=== PATIENT | female | born 1970 | race Caucasian/White ===

== ENCOUNTER 2023-06-06 14:23 | Observation (INO) ==
--- OUTSIDE RECORDS SUMMARY | 2023-06-06 14:29 | External Medical Summary | Summary of Care ---
Author Name Unknown Organization [facility] Address [address] [place] [address] Phone [phone] Care Team Providers Care Showplace Manager Name Role Phone Bear Conroy MD Primary Care Provider +1- [phone] Reason for Referral * Precert (Within 10 days (routine)) - Pending Review Specialty Diagnoses / Procedures Referred By Contac t Referred To Contact Cardiac Studies Diagnoses Elevated glucose Uncontrolled hypertension Hypokalemia Encounter for screening mammogram for breast cancer Heart palpitations Essential hypertension with goal blood pressure less than 140/90 Procedures ECHO, STRESS (EXERCISE) W/ PHYSICIAN Edie Segovia PA-C [address] [place] [address] Referral ID Status Reason Start Date Expiration Date Visits Requested Visits Authorized [id number] Pending Review Precert 06/04/2023 999 [id number] Reason for Visit * Reason Comments Emergency Department Follow-Up Encounter Details Date Type Department Care Team (Late st Contact Info) Description 06/04/2023 11:00 AM EST Office Visit [facility] [address] [place] [phone] Edie Segovia PA-C [address] [place] [address] Elevated glucose*; Uncontrolled hypertension; Hypokalemia; Encounter for screening mammogram for breast cancer; Heart palpitations; Essential hypertension with goal blood pressure less than 140/90; Edema of left upper arm Allergies No known active allergiesdocumented as of this encounter (statuses as of 06/04/2023) Medications Medication Sig Dispensed Refills Start Date End Date Status Triamcinolone Acetonide 0.1 % External Cream (Aristocort)Indicat ions:Lichen Apply topically to affected area 2 times a day . To affected area. 80 g 5 08/27/2021 Active Albuterol Sulfate HFA 108 (90 Base) MCG/ACT Inhalation Aerosol SolutionIndications :Bronchitis, complicated Inhale by mouth 2 Puffs every 6 hours as needed for Wheezing. 18 g 1 03/18/2022 Active Lisinopril-hydroCHL OROthiazide 20-25 MG Oral TabletIndications:E ssential hypertension with goal blood pressure less than 140/90 Take 1 Tablet by mouth in the morning. 90 Tablet 1 05/28/2023 Active hydrOXYzine Pamoate 25 MG Oral Capsule (Vistaril) Take 1 Capsule by mouth 3 times a day as needed for Anxiety. 60 Capsule 0 05/28/2023 06/27/2023 Active Omeprazole Magnesium 20 MG Oral Tablet Delayed Release (PriLOSEC OTC) Take 1 Tablet by mouth in the morning. 0 Active Atenolol 25 MG Oral Tablet (Tenormin)Indicatio ns:Uncontrolled hypertension,Heart palpitations,Essent ial hypertension with goal blood pressure less than 140/90 Take 1 Tablet by mouth at bedtime. 30 Tablet 11 06/04/2023 Active documented as of this encounter (statuses as of 06/04/2023) Active Problems Problem Noted Date Diagnosed Date Perimenopause 05/28/2023 Heart palpitations 05/28/2023 Essential hypertension with goal blood pressure less than 140/90 03/17/2023 Polyneuropathy in other diseases classified else where 02/11/2022 Family history of diabetes mellitus 11/09/2008 Chronic rhinitis 08/17/2006 VARIANTS OF MIGRAINE WITH INTRACTABLE MIGRAINE, SO STATED 08/03/2005 Heartburn documented as of this encounter (statuses as of 06/04/2023) Resolved Problems Problem Noted Date Diagnosed Date Resolved Date AC MAXILLARY SINUSITIS, LEFT 08/17/2006 11/23/2017 Acute URI 08/17/2006 07/05/2008 Overview: Resolved per Benign Acute Dxs Protocol #3 Dysfunction of eustachian tube 08/17/2006 11/23/2017 ADVANCE DIRECTIVE INFORMATION 11/13/2004 03/17/2023 Overview: refused CONTRACEPTIVE MANGMT NEC 02/2018 documented as of this encounter (statuses as of 06/04/2023) Immunizations Name Administration Dates Next Due COVID-19 mRNA, LNP-s, No Pre serve, 2-Dose Series (Moderna) 07/03/2020,06/05/2020 DTWP - Dipth/Tet/Whole Cell Pertussis 02/19/1973 ,01/27/1973,1972 Diptheria/Tetanus (Adult) 09/26/1996 Measles Vaccine 1972 OPV - Polio Virus Vaccine (Oral) 08/25/1973,06/17,04/27/1973 Rubella Vaccine 1972 TB Cindy Test 05/25/1974 TDAP (age 11 and older)(Adacel) 11/21/2008 documented as of this encounter Social History Tobacco Use Types Packs/Day Years Used Date Smoking Tobacco: Never Smokeless Tobacco: Never Alcohol Use Standard Drinks/Week Comments Yes 0 (1 standard drink = 0.6 oz pur e alcohol) OCCASSIONALLY PHQ-2 Answer Date Recorded PHQ Adult Total Score 0 07/22/2020 Hunger Vital Sign Answer Date Recorded Within the past 12 months, y ou worried that your food would run out before you got the money to buy more. Never true 03/17/20 23 Within the past 12 months, t he food you bought just didn't last and you didn't have money to get more. Never true 03/17/2023 Sex and Gender Information Value Date Recorded Sex Assigned at Female 03/17/2023 9:34 AM EDT Gender Identity Female 03/17/2023 9:34 AM EDT Sexual Orientation Straight 12/02/2018 8: 04 AM EDT Job Start Date Occupation Industry Not on file Not on file Not on file documented as of this encounter Last Filed Vital Signs Vital Sign Reading Time Taken Comments Blood Pressure 142/98 06/04/2023 10:52 AM EST Pulse 92 06/04/2023 10:52 AM EST Temperature 36.4 C (97.5 F) 06/04/2023 1 0:52 AM EST Respiratory Rate 16 06/04/2023 10:5 2 AM EST Oxygen Saturation - - Inhaled Oxygen Concentration - - Weight 116.2 kg (256 lb 3.2 oz) 024 10:52 AM EST Height - - Body Mass Index 38.96 02/11/2022 1:57 PM EDT documented in this encounter Progress Notes * Edie Segovia PA-C - 06/04/2023 10:56 AM EST Images from the original note were not included. History of Present Illness Yaritza Kaur is a 53 year old female that presents for Emergency Department Follow-Up Here for er f/u Had telemed on 05/28/2023 for her bp Then was to the er on 05/31/2023 for htn / chest heaviness No pain - really heaviness [place] numb all over Had been taking her medication so never ran out of meds. bp there was 184/125, 194/113, 186/99 and 154/113 EKG and scans normal Mild hypokalemia noted - potassium was 3.3 Of note, bg was also elevated at 101 Feeling somewhat better than when she went to the er L arm is swollen again and she has a omid on her skin, similar to when she had a clot in the past. Ct was clear but the last clot was at the fold of her arm. Physical Exam Vitals: 06/04/23 1052 Temp: 36.4 C (97.5 F) Pulse: 92 Resp: 16 BP: 142/98 BP Readings from Last 3 Encounters: 06/04/23 142/98 06/19/22 144/80 02/11/22 112/80 Wt Readings from Last 3 Encounters: 06/04/23 116.2 kg (256 lb 3.2 oz) 02/11/22 115.7 kg (255 lb) 08/27/21 109.5 kg (241 lb 6.4 oz) BMI Readings from Last 3 Encounters: 06/04/23 38.96 kg/m 02/11/22 38.77 kg/m 08/27/21 36.70 kg/m Ht Readings from Last 3 Encounters: 02/11/22 1.727 m (5' 8") 08/27/21 1.727 m (5' 8") 06/04/21 1.727 m (5' 8") General: alert, healthy, and no distress Head: Normocephalic, No masses, lesions, tenderness or abnormalities Eye Exam: PERRLA, extraocular movements intact, conjunctiva are pink and non- injected, sclera clear Heart: regular rate & rhythm, no murmur, no gallops, S-1 normal, and S-2 normal Lungs: chest symmetric with normal AP diameter, no chest deformities noted, no chest wall tenderness, lungs clear to auscultation Extremities: less than 2 second capillary refill, no joint deformities, effusion, or inflammation, gen LUE edema Skin: skin color, texture, turgor are normal, L upper arm with several patches of skin discoloration Assessment and Plan Elevated glucose (Primary) - HEMOGLOBIN A1C; Future; Expected date: 06/04/2023 - ECHO, STRESS (EXERCISE) W/ PHYSICIAN; Future; Expected date: 06/04/2023 Uncontrolled hypertension - BASIC METABOLIC PANEL; Future; Expected date: 06/04/2023 - ALBUMIN / CREATININE RATIO, URINE; Future; Expected date: 06/04/2023 - ECHO, STRESS (EXERCISE) W/ PHYSICIAN; Future; Expected date: 06/04/2023 - Atenolol 25 MG Oral Tablet (Tenormin); Take 1 Tablet by mouth at bedtime. Hypokalemia - BASIC METABOLIC PANEL; Future; Expected date: 06/04/2023 - ALBUMIN / CREATININE RATIO, URINE; Future; Expected date: 06/04/2023 - ECHO, STRESS (EXERCISE) W/ PHYSICIAN; Future; Expected date: 06/04/2023 - POTASSIUM; Standing Encounter for screening mammogram for breast cancer - MAMMOGRAM SCREENING FELICIA BILATERAL; Future; Expected date: 12/24/2023 - ECHO, STRESS (EXERCISE) W/ PHYSICIAN; Future; Expected date: 06/04/2023 Heart palpitations - ECHO, STRESS (EXERCISE) W/ PHYSICIAN; Future; Expected date: 06/04/2023 - Atenolol 25 MG Oral Tablet (Tenormin); Take 1 Tablet by mouth at bedtime. Essential hypertension with goal blood pressure less than 140/90 - ECHO, STRESS (EXERCISE) W/ PHYSICIAN; Future; Expected date: 06/04/2023 - Atenolol 25 MG Oral Tablet (Tenormin); Take 1 Tablet by mouth at bedtime. Edema of left upper arm - VASC DUPLEX VENOUS UE UNILAT; Future; Expected date: 06/04/2023 - D-DIMER; Future; Expected date: 06/04/2023 Wrap-Up Patient needs stress echo. Has had hypertensive episode after bp was controlled with no changes that we can find. Add beta eliana at bedtime for bp and hr control, get diasolic bp donw Consider change to diff bp med if potassium issues persist Rev er note Check for clot in LUE Time: I spent a total of 30-39 minutes (exact time 35 mins) on the date of service in preparation, delivery, and documentation of the care provided to Yaritza Kaur excluding any time spent in the performance of separately billed services. Edie Segovia PA-C 06/04/2023 11:21 AM documented in this encounter Nursing Notes * Arcelia Nguyen LPN - 06/04/2023 10:53 AM EST Pt in today for an ER follow up Still having some chest heaviness on & off documented in this encounter Miscellaneous Notes * Addendum Note - Edie Segovia PA-C - 06/04/2023 11:36 AM ESTAddended by: EDIE SEGOVIA on: 06/04/2023 11:36 AM Modules accepted: Orders documented in this encounter Plan of Treatment Scheduled Orders Name Type Priority Associated Diagnoses Orde r Schedule HEMOGLOBIN A1C Lab Routine Elevated glucose Expected: 06/04/2023 (Approximate), Expires: 06/03/2024 BASIC METABOLIC PANEL Lab Routine Uncontrolled hypertension Hypokalemia Expected: 06/04/2023 (Approximate), Expires: 06/03/2024 ALBUMIN / CREATININE RATIO, URINE Lab Routine Uncontrolled hypertension Hypokalemia Expected: 06/04/2023 (Approximate), Expires: 06/03/2024 MAMMOGRAM SCREENING FELICIA BILATERAL Medical Imaging Routine Encounter for screening mammogram for breast cancer Expected: 12/24/2023, Expires: 07/05/2024 ECHO, STRESS (EXERCISE) W/ PHYSICIAN Echocardiology Routine Elevated glucose Uncontrolled hypertension Hypokalemia Encounter for screening mammogram for breast cancer Heart palpitations Essential hypertension with goal blood pressure less than 140/90 Expected: 06/04/2023, Expires: 12/03/2023 D-DIMER Lab Routine Edema of left upper arm Expected: 06/04/2023 (Approximate), Expires: 06/03/2024 POTASSIUM Lab Routine Hypokalemia 12 Occurrences starting 06/04/2023 until 06/04/2024 VASC DUPLEX VENOUS UE UNILAT Medical Imaging STAT Edema of left upper arm Expected: 06/04/2023, Expires: 07/05/2024 Health Maintenance Due Date Last Done Comments Hepatitis B (1 of 3 - 3-dose series) 1972 HIV Screening 01/06/1987 Albumin/Creatinine Ratio 01/06/1990 Hepatitis C Screening 01/06/1990 HPV/Co-Test 01/06/2002 Cologuard 01/06/2017 Colonoscopy 01/06/2017 Colorectal Cancer Screening 01/06/2017 Fecal Occult Blood Test 01/06/2017 Sigmoidoscopy 01/06/2017 DTaP,Tdap,and Td Vaccines (4 - Td or Tdap) 11/21/2018 11/21/2008, 09/26/1996, 02/19/1973, Additional history exists Depression Screening 07/22/2021 07/22/2020 Zoster Vaccines (1 of 2) 01/06/2022 GFR 08/27/2022 08/27/2021, 06/18, 07/17/2020, Additional history exists COVID-19 Vaccine (3 - 2022- season) 2023 07/03/2020, 06/05/2020 Influenza Vaccine (FLU shot) (#1) 2023 Mammogram 12/23/2023 12/22/2022, 12/16, 12/22/2018, Additional history exists Cervical Cancer Screening 08/27/2024 Diabetes Screening 08/27/2024 08/27/2021, 0 07/17/2020, 10/13/2016, Additional history exists Pap Smear 08/27/2024 08/27/2021, 11/14, 01/03/2015, Additional history exists Lipid Panel 07/17/2025 07/17/2020 GARDASIL-HPV IMMUNIZATION SERIES Aged Out No longer eligible based on patient's age to complete this topic MENINGOCOCCAL (MENACTRA/MENVEO) Aged Out No longer eligible based on patient's age to complete this topic Pneumococcal Vaccine: Pediatrics (0 to 5 Years) and At-Risk Patients (6 to 64 Years) Aged Out No longer eligible based on patient's age to complete this topic documented as of this encounter Medical Devices Not on filedocumented as of this encounter Visit Diagnoses Diagnosis Elevated glucose- Primary Other abnormal glucose Uncontrolled hypertension Unspecified essential hypertension Hypokalemia Hypopotassemia Encounter for screening mammogram for breast cancer Heart palpitations Palpitations Essential hypertension with goal blood pressure less than 140/90 Edema of left upper arm documented in this encounter Care Teams Showplace Manager Relationship Specialty Start Date End Date Bear Conroy MD [address] [place] [address] PCP - General 07/14/02 documented as of this encounter
--- OUTSIDE RECORDS SUMMARY | 2023-06-06 14:29 | External Medical Summary | Summary of Care ---
Author Name Unknown Organization [facility] Address [address] [place] [address] Phone [phone] Care Team Providers Care Business Management Professor Name Role Phone Bear Conroy MD Primary Care Provider +1- [phone] Reason for Referral * Precert (Within 10 days (routine)) - Pending Review Specialty Diagnoses / Procedures Referred By Contac t Referred To Contact Cardiac Studies Diagnoses Elevated glucose Uncontrolled hypertension Hypokalemia Encounter for screening mammogram for breast cancer Heart palpitations Essential hypertension with goal blood pressure less than 140/90 Procedures ECHO, STRESS (EXERCISE) W/ PHYSICIAN Edie Segovia PA-C [address] [place] [address] Referral ID Status Reason Start Date Expiration Date Visits Requested Visits Authorized [id number] Pending Review Precert 06/04/[phone] Reason for Visit * Reason Comments Emergency Department Follow-Up Encounter Details Date Type Department Care Team (Late st Contact Info) Description 06/04/2023 11:00 AM EST Office Visit [facility] [address] [place] [phone] Edie Segovia PA-C [address] [place] [address] Elevated glucose*; Uncontrolled hypertension; Hypokalemia; Encounter for [...] chest heaviness No pain - really heaviness [place] numb all over Had been taking her [...] documented in this encounter Plan of Treatment Upcoming Encounters Date Type Department Care Team (Late st Contact Info) Description 08/27/2023 2:00 PM EDT Imaging Cardiac Studies, [address] [place] [address] Scheduled Orders Name Type Priority Associated Diagnoses [...] (1 of 2) 01/06/2022 GFR 08/27/2022 08/27/2021, 02/05/2021, 07/17/2020, Additional history exists COVID-19 Vaccine (3 [...] arm documented in this encounter Care Teams Business Management Professor Relationship Specialty Start Date End Date Bear Conroy MD [address] [place] [address] PCP - General 07/14/02 documented as of this encounter
--- OUTSIDE RECORDS SUMMARY | 2023-06-06 14:29 | External Medical Summary | Summary of Care ---
Author Name Unknown Organization [facility] Address [address] [facility] [place] [address] Phone [phone] Care Team Providers Care Elementary School Tutor Name Role Phone Bear Conroy MD Primary Care Provider +1- [phone] Encounter Details Date Type Department Care Team (Late st Contact Info) Description 06/01/2023 Orders Only PATIENT PORTAL DO NOT DELETE THIS DEPT USED BY [place] [id number] Allergies No known active allergiesdocumented as of this encounter (statuses as of 06/01/2023) Medications Medication Sig Dispensed Refills Start Date [...] Anxiety. 60 Capsule 0 05/28/2023 06/27/2023 Active documented as of this encounter (statuses as of 06/01/2023) Active Problems Problem Noted Date Diagnosed Date Perimenopause 05/28/2023 Heart palpitations 05/28/2023 Essential hypertension with goal blood pressure less than 140/90 03/17/2023 Polyneuropathy in other diseases classified else where 02/11/2022 Family history of diabetes mellitus 11/09/2008 Chronic rhinitis 08/17/2006 VARIANTS OF MIGRAINE WITH INTRACTABLE MIGRAINE, SO STATED 08/03/2005 Heartburn documented as of this encounter (statuses as of 06/01/2023) Resolved Problems Problem Noted Date Diagnosed Date Resolved Date AC MAXILLARY SINUSITIS, LEFT 08/17/2006 11/23/2017 Acute URI 08/17/2006 07/05/2008 Overview: Resolved per Benign Acute Dxs Protocol #3 Dysfunction of eustachian tube 08/17/2006 11/23/2017 ADVANCE DIRECTIVE INFORMATION 11/13/2004 03/17/2023 Overview: refused CONTRACEPTIVE MANGMT NEC 02/2018 documented as of this encounter (statuses as of 06/01/2023) Immunizations Name Administration Dates Next Due COVID-19 mRNA, LNP-s, No Pre serve, 2-Dose Series (Moderna) 07/03/2020,06/05/2020 TDAP (age 11 and older)(Adacel) 11/21/2008 documented [...] on file documented as of this encounter Plan of Treatment Upcoming Encounters Date Type Department Care Team (Late st Contact Info) Description 06/04/2023 11:00 AM EST Office Visit [facility] [place] [address] [facility] [place] [phone] Ed[facility] [address] [facility] [id number] Health Maintenance Due Date Last Done Comments [...] 06/18, 07/17/2020, Additional history exists COVID-19 Vaccine ( season) 2023 07/03/2020, 06/05/2020 Influenza Vaccine (FLU [...] Not on filedocumented as of this encounter Care Teams Elementary School Tutor Relationship Specialty Start Date End Date Bear Conroy MD [address] [place] [address] PCP - General 07/14/02 documented as of this encounter
--- OUTSIDE RECORDS SUMMARY | 2023-06-06 14:29 | External Medical Summary | Summary of Care ---
Author Name Unknown Organization [facility] Address [address] [place] [address] Phone [phone] Care Team Providers Care Handy Worker Name Role Phone Bear Conroy MD Primary Care Provider +1- [phone] Encounter Details Date Type Department Care Team (Late st Contact Info) Description 06/03/2023 Orders Only [facility] [address] [place] [address] Bear Conroy MD [address] [place] [address] Allergies No known active allergiesdocumented as of this encounter (statuses as of 06/03/2023) Medications Medication Sig Dispensed Refills Start Date [...] as of this encounter (statuses as of 06/03/2023) Active Problems Problem Noted Date Diagnosed Date Perimenopause 05/28/2023 Heart palpitations 05/28/2023 Essential hypertension with goal blood pressure less than 140/90 03/17/2023 Polyneuropathy in other diseases classified else where 02/11/2022 Family history of diabetes mellitus 11/09/2008 Chronic rhinitis 08/17/2006 VARIANTS OF MIGRAINE WITH INTRACTABLE MIGRAINE, SO STATED 08/03/2005 Heartburn documented as of this encounter (statuses as of 06/03/2023) Resolved Problems Problem Noted Date Diagnosed Date Resolved Date AC MAXILLARY SINUSITIS, LEFT 08/17/2006 11/23/2017 Acute URI 08/17/2006 07/05/2008 Overview: Resolved per Benign Acute Dxs Protocol #3 Dysfunction of eustachian tube 08/17/2006 11/23/2017 ADVANCE DIRECTIVE INFORMATION 11/13/2004 03/17/2023 Overview: refused CONTRACEPTIVE MANGMT NEC 02/2018 documented as of this encounter (statuses as of 06/03/2023) Immunizations Name Administration Dates Next Due COVID-19 [...] Description 06/04/2023 11:00 AM EST Office Visit [facility] [address] [place] [facility] [place] [address] Edie Segovia PA-C [address] [place] [facility] [place] [address] Health Maintenance Due Date Last Done Comments [...] Not on filedocumented as of this encounter Procedures Procedure Name Priority Date/Time Associated Diagnosis Comments OUTSIDE LAB-CORONAVIRUS (COVID-19) Routine 05/31/2023 documented in this encounter Results * OUTSIDE LAB-CORONAVIRUS (COVID-19) (05/31/2023) [id number] DE LAB NOT DETECTED NOT DETECTED OUTSIDE LAB (SEE SCANNED REPORT) 05/31/2023 History Per Patient LABORATORY OUTSIDE LAB (SEE SCANNED REPORT) documented in this encounter Care Teams Handy Worker Relationship Specialty Start Date End Date Bear Conroy MD [address] [place] [address] PCP - General 07/14/02 documented as of this encounter
[2023-06-06] MEDS ORDERED: NITROGLYCERIN SL 0.4 MG/TAB TAB SL STA (14:44)
--- NOTE | 2023-06-06 14:54 | XRay Report ---
XR chest 1V portable CLINICAL HISTORY: Chest pain, nonspecific TECHNIQUE: Single frontal radiograph of the chest was obtained. Comparison: Comparison is made to chest radiograph 05/31/2023 FINDINGS: No lines and tubes are seen. The cardiomediastinal silhouette is normal. The lungs are clear. No evid ence of pleural effusion or pneumothorax. IMPRESSION: No acute chest disease. ACT 112: Negative or not required by law. Electronically signed by: Ammon Snider M.D. 06/06/2023 2:53 PM
--- NOTE | 2023-06-06 15:01 | Emergency Department Note ---
Impression & Plan Retrosternal chest pain, Shortness of breath ED Provider Note NAME: EDWAR ARMENDARIZ AGE: 53 SEX: Female INFORMANT: Patient ED PROVIDER(S): Tigre Le MD CHIEF COMPLAINT: Chest pain PLAN: Disposition: Admitted Outpatient prescription management: none Referral: None MEDICAL DECISION MAKING: Patient presented because of chest pain and shortness of breath. This was recurrent episode and she had a negative workup 6 days ago. Patient was given additional nitroglycerin x 1 in the emergency department due to feeling some additional pain returning. ECG showed isolated T wave inversion in lead III when compared to her old ECG. aVF was flat as well. Patient had an unremarkable chest x-ray. CBC and chemistry panels were unremarkable as well as cardiac troponin. BNP negative. LFTs and lipase negative. Patient noted no significant change with a dose of nitroglycerin here and had no increase in her pain or discomfort. Patient underwent head CT imaging to evaluate her complaints of intermittent paresthesia as she noted she has not had any neuroimaging in the recent years. I discussed further management in the hospital with the patient and family. They were in agreement. Consultation was made with the [facility] hospitalist service. Case discussed diagnostics were reviewed. Patient will be admitted for further management. Care/management discussed with: Discussed with unclaimed property manager Level of care consideration(s): After review of the information above and other included data, I feel the patient requires escalation of care to admission. Triage Nursing notes: reviewed and agree them. Vital Signs: reviewed and remarkable for hypertension Additional History obtained from: none Chronic Medical/Social Conditions affecting care: Hypertension Prior/ Outside/ External records reviewed: Per ED record reviewed regarding her visit for chest pain. Troponin was negative. No acute ischemia on ECG. Patient had CT imaging done of the chest and no pulm embolism noted Differential Diagnosis: Cardiac ischemia, aortic dissection, pulmonary embolism, pneumothorax, pneumonia, pericarditis, myocarditis, esophageal rupture, GERD, cholecystitis, pancreatitis, musculoskeletal, as well as other pathologies. Diagnostics, independently interpreted by me: ECG: Twelve-lead ECG was normal sinus rhythm at 70 bpm. T wave inversions in lead III only. Flat ST segments in lead aVF. No ST elevation or depression noted. No significant change compared to 31 May 2023 other than the isolated lead 3T WI. Cardiac Monitoring: Cardiac monitoring ordered by me: The patient was placed on continuous cardiac monitoring and observed. It revealed a normal sinus rhythm at 70 beats per minute without ectopy or evidence of dysrhythmia. Medical decision rules: none Imaging studies: Chest x-ray. Findings: A chest x-ray was performed and revealed no pneumothorax, effusion, infiltrate, pulmonary edema, free air under the diaphragm, or wide mediastinum. Impression: No acute disease. Head CT: A noncontrast CT scan of the head was performed and was negative for tumor, fracture, intracranial hemorrhage, or other acute pathology. HPI: 53 year old Female arrives for evaluation of chest pain shortness of breath. This started again about 2 days ago and is worse today. She noted recurrent chest pain that started about 1.5 hours ago. She felt lightheaded and short of breath. Patient had a negative workup 6 days ago in the ED. The patient also notes the following associated symptoms, dyspnea and lightheadedness, feeling sweaty and nauseated.. Patient also has been dealing with paresthesias in the upper extremities ongoing for months and that has been intermittent. That is being evaluated by her outpatient team and not associated with the shortness of breath or chest pain episodes. Patient was given aspirin and 2 nitroglycerin prehospital. The patient has noted no aggravating or relieving factors. Current pain is rated as 3/10. Patient states discomfort was a 10. Pt denies LOC, headache, fevers, chills, visual changes, neck pain, vomiting, abdominal pain, back pain, melena, hematochezia, urinary symptoms, weakness, lymphadenopathy, rash, or other complaints. . PAST MEDICAL HISTORY: See Below, hypertension PAST SURGICAL HISTORY: See Below, SOCIAL HISTORY: See Below, non-smoker HOME MEDICATIONS: See Below ALLERGIES: See Below VITALS: See Below PHYSICAL EXAMINATION: GENERAL: Awake, alert, well-appearing, in no distress HENT: Normocephalic, atraumatic. Oropharynx unremarkable. EYES: Normal conjunctiva. Sclera non-icteric. NECK: Inspection normal. Non-tender. Supple. No nuchal rigidity. FROM. No masses. RESPIRATORY: Clear to auscultation. No wheezes. No rales. Normal respiratory effort. CARDIAC: Normal rate. Normal rhythm. No murmurs. No rubs. Extremities warm and well perfused. Pulses equal. No JVD. GI: Soft, non-distended. No tenderness to palpation. No rebound or guarding. No masses. RECTAL: Deferred. MUSCULOSKELETAL: Atraumatic. Chest examination reveals no tenderness. The back is symmetrical on inspection without obvious abnormality. There is no CVA tenderness to palpation. No joint edema. LOWER EXTREMITIES: Calves are equal size bilaterally and non-tender. No edema. No discoloration. NEURO: Normal sensorium. No focal sensory or motor deficits noted. SKIN: No rash or jaundice noted. PROCEDURES: none CRITICAL CARE: none OBSERVATION NOTE: none Past Med/Surg History Medical History (Updated 06/06/23 @ 18:17 by ANA Kline) H/O gastroesophageal reflux (GERD) Paresthesia Hypertension Family History (Updated 06/06/23 @ 18:03 by ANA Kline) Father Myocardial infarction Other Diabetes Heart disease Hypertension Social History Smoking Status: Never smoker Hx Alcohol Use: Yes Alcohol type: wine Hx Substance Use: No Preferred Language: [place] Beliefs That Will Affect Care: None Current Living Situation: Spouse Other Information That Helps Us Care for You: No Feels Safe at Home: Yes Safety Concerns: Feels Safe At This Time Assistive Devices: Glasses Allergies Allergies Allergy/AdvReac Type Severity Reaction Status Date / Time No Known Allergies Allergy Unknown Verified 07/15/21 17:14 Home Meds Home Medications Medication Instructions Recorded Confirmed acetaminophen 500 mg tablet 1,000 mg PO Q6H PRN Pain 05/31/23 06/06/23 (Tylenol Extra Strength) hydroxyzine pamoate 25 mg capsule 25 mg PO TID PRN Anxiety 05/31/23 06/06/23 lisinopril 20 1 tab PO QAM 05/31/23 06/06/23 mg-hydrochlorothiazide 25 mg tablet omeprazole magnesium 20 mg 20 mg PO DAILY 05/31/23 06/06/23 tablet,delayed release (Prilosec OTC) atenolol 25 mg tablet 25 mg PO HS 06/06/23 06/06/23 loratadine 10 mg tablet (Claritin) 10 mg PO QAM 06/06/23 06/06/23 Results & Data (ED) Vital Signs Vital Signs - 24 hr 06/06/23 14:30 06/06/23 14:30 06/06/23 14:36 Temperature Temperature Source Pulse Rate 80 Pulse Rate [Finger] Respiratory Rate 27 H Respiratory Effort / Characteristics Non-Labored Non-Labored Respiratory Depth Normal Normal Respiratory Pattern Regular Blood Pressure 151/93 H Blood Pressure [Right Arm] Blood Pressure Mean 112 Blood Pressure Mean [Right Arm] Pulse Oximetry 96 95 Oxygen Delivery Method Room Air Room Air Oxygen Flow Rate 0 Fraction of Inspired Oxygen Sepsis Recent Fever Within 48 Hours No Sepsis New/Unexplained Change in Mental Status No Sepsis Action Taken by Nursing No Action Required 06/06/23 14:36 06/06/23 15:17 06/06/23 15:32 Temperature Temperature Source Pulse Rate 76 Pulse Rate [Finger] 80 77 Respiratory Rate 19 22 Respiratory Effort / Characteristics Non-Labored Non-Labored Respiratory Depth Normal Normal Respiratory Pattern Blood Pressure Blood Pressure [Right Arm] 151/93 H 169/92 H Blood Pressure Mean Blood Pressure Mean [Right Arm] 112 117 Pulse Oximetry 95 98 Oxygen Delivery Method Room Air Room Air Oxygen Flow Rate Fraction of Inspired Oxygen Sepsis Recent Fever Within 48 Hours Sepsis New/Unexplained Change in Mental Status Sepsis Action Taken by Nursing 06/06/23 15:48 06/06/23 15:48 06/06/23 15:58 Temperature 36.7 C Temperature Source Oral Pulse Rate 71 Pulse Rate [Finger] 67 Respiratory Rate 19 22 Respiratory Effort / Characteristics Non-Labored Respiratory Depth Normal Respiratory Pattern Blood Pressure Blood Pressure [Right Arm] 136/93 Blood Pressure Mean Blood Pressure Mean [Right Arm] 107 Pulse Oximetry 96 96 Oxygen Delivery Method Room Air Room Air Oxygen Flow Rate 0 Fraction of Inspired Oxygen 0 Sepsis Recent Fever Within 48 Hours Sepsis New/Unexplained Change in Mental Status Sepsis Action Taken by Nursing Laboratory Data 06/06/23 14:56 06/06/23 14:56 Lab Results 06/06/23 Range/Units 14:56 WBC 9.96 (4.8-10.8) K/ul RBC 4.35 (4.20-5.40) M/uL Hgb 14.4 (12.0-16.0) g/dl Hct 40.4 (37.0-47.0) % MCV 92.9 (80.0-100.0) fL MCH 33.1 (25.0-34.0) pg MCHC 35.6 (32.0-36.0) g/dL RDW Std Deviation 41.1 (36.4-46.3) fL RDW Coeff of Lu 12.0 (11.5-14.5) % Plt Count 250 (130-400) K/uL MPV 9.4 (9.4-12.4) fL Immature Gran % (Auto) 0.4 % Neut % (Auto) 81.7 % Lymph % (Auto) 10.4 % [place] % (Auto) 6.1 % Eos % (Auto) 1.0 % Baso % (Auto) 0.4 % Neut # (Auto) 8.13 H (1.40-6.50) K/uL Lymph # (Auto) 1.04 L (1.20-3.40) K/uL [place] # (Auto) 0.61 H (0.11-0.59) K/uL Eos # (Auto) 0.10 (0.00-0.50) K/uL Baso # (Auto) 0.04 (0.00-0.20) K/uL Immature Gran # (Auto) 0.04 (0.01-0.20) K/uL Sodium 137 (136-145) mmol/L Potassium 3.4 L (3.5-5.1) mmol/L Chloride 105 (98-107) mmol/L Carbon Dioxide 24 (21-32) mmol/L Anion Gap 8 (3-11) BUN 17 (6-23) mg/dl Creatinine 0.61 (0.6-1.2) mg/dl Est Cr Clr Drug Dosing 147.4 ml/min Est GFR ( Amer) 121.7 ml/min Est GFR (Non-Af Amer) 105.0 ml/min BUN/Creatinine Ratio 27.9 H (10-20) Glucose 101 H (70-99(Fasting)) mg/dl Calcium 8.9 (8.6-10.3) mg/dl Magnesium 1.8 (1.7-2.4) mg/dl Total Bilirubin 0.4 (0.2-1.0) mg/dl AST 37 (13-39) U/L ALT 27 (7-52) U/L Alkaline Phosphatase 85 (34-104) U/L Troponin I High Sens 8.8 (0-14) pg/ml B-Natriuretic Peptide 59 (0-100) pg/ml Total Protein 6.5 (6.0-8.3) gm/dl Albumin 4.0 (3.4-5.0) gm/dl Globulin 2.5 (2.5-4.0) gm/dl Albumin/Globulin Ratio 1.6 (0.9-2) Lipase 25 (11-82) U/L Administered Medications Enoxaparin Sodium (Enoxaparin Inj 40 Mg/0.4 Ml Syr) 40 mg SQ QAM COLLINS Stop: 07/06/23 18:59 Last Admin: 06/06/23 19:55 Dose: 40 mg Documented By: SHAY Sodium Chloride (Nss) 1,000 mls @ 125 mls/hr IV .Q8H COLLINS Stop: 07/06/23 16:29 Last Admin: 06/06/23 16:52 Dose: 125 mls/hr Documented By: HARLEY Discontinued Medications Amlodipine Besylate (Amlodipine Besylate 5 Mg Tab) 5 mg PO NOW ONE Stop: 06/06/23 18:13 Last Admin: 06/06/23 19:55 Dose: 5 mg Documented By: SHAY Nitroglycerin (Nitroglycerin Sl 0.4 Mg/Tab Tab) 0.4 mg SL NOW STA Stop: 06/06/23 14:45 Last Admin: 06/06/23 15:17 Dose: 0.4 mg Documented By: HARLEY Potassium Chloride (Potassium Chloride Crtab 20 Meq Tabcr) 20 meq PO NOW STA Stop: 06/06/23 16:20 Last Admin: 06/06/23 16:51 Dose: 20 meq Documented By: HARLEY Potassium Chloride (Potassium Chloride Crtab 20 Meq Tabcr) 20 meq PO NOW ONE Stop: 06/06/23 18:16 Last Admin: 06/06/23 19:55 Dose: 20 meq Documented By: SHAY Imaging Data Radiologist's Impression: Chest X-Ray 06/06/23 14:27 XR chest 1V portable CLINICAL HISTORY: Chest pain, nonspecific TECHNIQUE: Single frontal radiograph of the chest was obtained. Comparison: Comparison is made to chest radiograph 05/31/2023 FINDINGS: No lines and tubes are seen. The cardiomediastinal silhouette is normal. The lungs are clear. No evidence of pleural effusion or pneumothorax. IMPRESSION: No acute chest disease. ACT 112: Negative or not required by law. Electronically signed by: Ammon Snider M.D. 06/06/2023 2:[address] 06/06/23 16:40 CT head/brain wo con CLINICAL HISTORY: left arm numbness Technique: Contiguous axial CT images of the head were acquired from the base of the skull to the vertex without intravenous contrast administration. Images were viewed in brain, subdural and bone windows. Automated dose lowering techniques and/or adjustment according to patient size were utilized for this exam. Comparison: None available at the time of this dictation. Findings: The ventricles, basal cisterns, and cerebral sulci are normal. There is no acute intracranial hemorrhage or evidence of acute territorial infarction. Neither mass effect, shift of the midline structures, nor abnormal extra-axial fluid collections are shown. Imaged portions of the paranasal sinuses and mastoid air cells are clear. The orbits appear normal. There are no acute fractures of the calvaria or scalp swelling. Impression: No acute intracranial hemorrhage, no evidence of acute territorial infarction or other acute intracranial disease process. ACT 112: Negative or not required by law. Electronically signed by: Ammon Snider M.D. 06/06/2023 5:14 PM Discharge Plan Visit Data Chief Complaint: Shortness of Breath/Dyspnea Stated Complaint: CHEST PAIN, SOB ED Provider: Tigre Le Discharge Problem: Retrosternal chest pain, Shortness of breath Patient Disposition: Admitted As Inpatient Discharge Instructions Interventions: ED Discharge Assessment Last Done: 06/06/23 18:31
[2023-06-06 15:23] LABS: Basophils # (auto) 0.04 K/uL (0.00-0.20); Basophils % (auto) 0.4 %; Hematocrit (blood only) 40.4 % (37.0-47.0); Hemoglobin 14.4 g/dl (12.0-16.0); Immature Granulocytes # (auto) 0.04 K/uL (0.01-0.20); Immature Granulocytes % (auto) 0.4 %; Lymphocytes # (auto) 1.04 K/uL (1.20-3.40); Lymphocytes % (auto) 10.4 %; Mean Corpuscular Hemoglobin 33.1 pg (25.0-34.0); Mean Corpuscular Hgb Conc 35.6 g/dL (32.0-36.0); Mean Corpuscular Volume 92.9 fL (80.0-100.0); Mean Platelet Volume 9.4 fL (9.4-12.4); Monocytes # (auto) 0.61 K/uL (0.11-0.59); Monocytes % (auto) 6.1 %; Neutrophils # (auto) 8.13 K/uL (1.40-6.50); Neutrophils % (auto) 81.7 %; Platelet Count 250 K/uL (130-400); RDW Standard Deviation 41.1 fL (36.4-46.3); Red Blood Count 4.35 M/uL (4.20-5.40); White Blood Count 9.96 K/ul (4.8-10.8)
[2023-06-06 15:42] LABS: Albumin Globulin Ratio 1.6 (0.9-2); BUN Creatinine Ratio 27.9 (10-20); Bilirubin,Total 0.4 mg/dl (0.2-1.0); Calcium 8.9 mg/dl (8.6-10.3); Creatinine Clr Calc Pharmacy 147.4 ml/min; Est GFR (African American) 121.7 ml/min; Globulin 2.5 gm/dl (2.5-4.0); Potassium 3.4 mmol/L (3.5-5.1); Total Protein 6.5 gm/dl (6.0-8.3)
[2023-06-06 15:49] LABS: Troponin I High Sensitivity 8.8 pg/ml (0-14)
[2023-06-06] MEDS ORDERED: POTASSIUM CHLORIDE CRTAB 20 MEQ TABCR PO STA (16:19)
[2023-06-06] MEDS: SODIUM CHLORIDE 0.9% 1,000 ML IV SCH (16:52)
--- NOTE | 2023-06-06 17:15 | CT Scan Report ---
CT head/brain wo con CLINICAL HISTORY: left arm numbness Technique: Contiguous axial CT images of the head were acquired from the base of the skull to the cindy eliana without intravenous contrast administration. Images were viewed in brain, subdural and bone [facility]. Automated dose lowering techniques and/or adjustment according to patient size were utilized for this exam. Comparison: None available at the time of this dictation. Findings: The ventricles, basal cisterns, and cerebral sulci are normal. There is no acute intracranial hemorrh age or evidence of acute territorial infarction. Neither mass effect, shift of the midline structures , nor abnormal extra-axial fluid collections are shown. Imaged portions of the paranasal sinuses and mastoid air cells are clear. The orbits appear normal. There are no acute fractures of the calvaria or scalp swelling. Impression: No acute intracranial hemorrhage, no evidence of acute territorial infarction or other acute intracra nial disease process. ACT 112: Negative or not required by law. Electronically signed by: Ammon Snider M.D. 06/06/2023 5:14 PM
[2023-06-06] MEDS ORDERED: POLYETHYLENE (MIRALAX) 17 GM PACK PO PRN (17:41)
[2023-06-06] MEDS ORDERED: ACETAMINOPHEN 325 MG TAB PO PRN (17:41)
[2023-06-06] MEDS ORDERED: MAGNESIUM HYDROXIDE SUSP 30 ML UDC PO PRN (17:41)
[2023-06-06] MEDS ORDERED: ONDANSETRON INJ 2 MG/ML 2 ML VIAL IV PRN (17:41)
[2023-06-06] MEDS ORDERED: ALUMINUM/MAGNESIUM SUSP 30 ML UDC PO PRN (17:41)
--- NOTE | 2023-06-06 17:44 | History & Physical Report ---
Date of Service June 06, 2023 Assessment & Plan (1) Chest pain: (2) Hypertension: (3) History of deep vein thrombosis: (4) Hypokalemia: (5) Paresthesia: Plan Ms. Kaur is a 53 year old female that presented to the ED with chest pain. She was sitting on her couch watching tv; she doesn't report SOB, but is aware of taking deep breaths. She reports feeling anxious. She stated that her thought she was going to pass out. She felt like she was naus eated but did not vomit. On 05/31 she presented to the ED with similar symptoms, including chest pressure. She had a work up including negative troponin and was released from the ED. She reports that Atenolol was recently added to her medication list. She has a PMH that includes HTN, GERD, H/O LUE DVT ( 2020 provoked by IV draws, not on any anticoagulation), bilateral paraesthesia. Denies AMI or CVA history. Father had an VT at 70 years old. Mother and father had diabetes. Denies tobacco use, social alcohol, no recreational drug use, including medical marijuana. She has had an appendectomy and a tubal ligation. In the ED, no leukocytosis, BNP 59, K+ mildly low at 3.4, Troponin 8.8. ECG changes indicate T wave inversion on Lead III. No T wave inversion on ECG on 05/31. She denies [place], fever, chills, cough, diarrhea, constipation, hematochezia, dysuria, recent falls or trauma. Will admit for complete cardiac work up, including ECHO, Cardiology consult due to t-wave inversion, NPO after MN, Hold Atenolol and HCTZ pending Cards eval. Start Amlodipine and replace K+. Chest pain: Acute 324 aspirin plus nitro x 2 administered without symptom improvement ECG changes from 05/31 now with T wave inversion inferior lead III Initial trop 8.8; do not suspect ACS, but with s/s will trend x2 Was scheduled for stress test in a few weeks; will obtain echo while inpatient Will keep n.p.o. after midnight pending cards evaluation Lovenox SQ Cardiology consultation placed Hypokalemia: Acute Serum potassium 3.4 Replace with a total of 40 p.o. and recheck in a.m. No ectopy on heart monitor History of DVT: Chronic Suspected related to multiple IV in left upper extremity Was on anticoagulation x 3 months no longer taking any anticoagulants HTN: Chronic Takes lisinopril/HCTZ; hold HCTZ pending cards evaluation Continue lisinopril Hold atenolol. Recently started, first dose yesterday hold for now pending cards evaluation Start amlodipine 5 mg tonight GERD: Chronic Takes omeprazole; continue Disposition: PCP: Dr. Conroy Code Status: Full Code VTE Prophyalxis: Lovenox SQ I spent a total of 87 minutes coordinating, documenting, and providing care for this patient excluding time spent in the performance of separately billed services. All of the aforementioned completed while collaborating with the assigned attending physician for a full treatment plan. Please see their addendu m for further details. History of Present Illness Chief Complaint: chest pain Primary Care Provider: Bear Conroy MD Ms. Kaur is a 53 year old female that presented to the ED with chest pain. She was sitting on her couch watching tv; she doesn't report SOB, but is aware of taking deep breaths. She reports feeling anxious. She stated that her thought she was going to pass out. She felt like she was n auseated but did not vomit. On 05/31 she presented to the ED with similar symptoms, including chest pressure. She had a work up including negative troponin and was released from the ED. She reports that Atenolol was recently added to her medication list. She has a PMH that includes HTN, GERD, H/O LUE DVT ( 2020 provoked by IV draws, not on any anticoagulation), bilateral paraesthesia. Denies AMI or CVA history. Father had an VT at 70 years old. Mother and father had diabetes. Denies tobacco use, social alcohol, no recreational drug use, including medical marijuana. She has had an appendectomy and a tubal ligation. In the ED, no leukocytosis, BNP 59, K+ mildly low at 3.4, Troponin 8.8. ECG changes indicate T wave inversion on Lead III. No T wave inversion on ECG on 05/31. She denies [place], fever, chills, cough, diarrhea, constipation, hematochezia, dysuria, recent falls or trauma. Will admit for complete cardiac work up, including ECHO, Cardiology consult due to t-wave inversion, NPO after MN, Hold Atenolol and HCTZ pending Cards eval. Start Amlodipine and replace K+. Allergies Allergy/AdvReac Type Severity Reaction Status Date / Time No Known Allergies Allergy Unknown Verified 07/15/21 17:14 Home Medications Medication Instructions Recorded Confirmed Type acetaminophen 500 mg tablet 1,000 mg PO Q6H PRN Pain 05/31/23 06/06/23 History (Tylenol Extra Strength) hydroxyzine pamoate 25 mg capsule 25 mg PO TID PRN Anxiety 05/31/23 06/06/23 History lisinopril 20 1 tab PO QAM 05/31/23 06/06/23 History mg-hydrochlorothiazide 25 mg tablet omeprazole magnesium 20 mg 20 mg PO DAILY 05/31/23 06/06/23 History tablet,delayed release (Prilosec OTC) atenolol 25 mg tablet 25 mg PO HS 06/06/23 06/06/23 History loratadine 10 mg tablet (Claritin) 10 mg PO QAM 06/06/23 06/06/23 History Past Med/Surg History Medical History (Updated 06/06/23 @ 18:17 by ANA Kline) H/O gastroesophageal reflux (GERD) Paresthesia Hypertension Family History (Updated 06/06/23 @ 18:03 by ANA Kline) Father Myocardial infarction Other Diabetes Heart disease Hypertension Social History Smoking Status: Never smoker Preferred Language: Danish Feels Safe at Home: Yes Review of Systems Review of Systems: Neuro: (-) Falls, trauma, slurred speech HEENT: (-) [place], dizziness, dysphagia, visual or auditory changes CV: (+) CP, (-)palpitations, swelling Resp: (+) SOB GI: (-) appetite changes, N/V/D, bowel changes : (-) urinary changes Skin: (-) rashes Psych: (-) anxiety, depression Physical Exam Physical Exam: See Dr. De Los Santos's addendum for physical exam findings Results & Data Results & Data Vital Signs (Past 12 Hours) Vital Signs Temp Pulse Pulse Resp BP BP Pulse Ox 06/06/23 15:58 36.7 C 06/06/23 15:48 71 22 96 06/06/23 15:48 67 19 136/93 96 06/06/23 15:32 76 06/06/23 15:17 77 22 169/92 H 98 06/06/23 14:36 80 19 151/93 H 95 06/06/23 14:36 95 06/06/23 14:30 06/06/23 14:30 80 27 H 151/93 H 96 O2 Del Method O2 Flow Rate FiO2 06/06/23 15:58 06/06/23 15:48 Room Air 0 0 06/06/23 15:48 Room Air 06/06/23 15:32 06/06/23 15:17 Room Air 06/06/23 14:36 Room Air 06/06/23 14:36 Room Air 0 06/06/23 14:30 Room Air 06/06/23 14:30 Laboratory Results Short CBC 06/06/23 Range/Units 14:56 WBC 9.96 (4.8-10.8) K/ul Hgb 14.4 (12.0-16.0) g/dl Hct 40.4 (37.0-47.0) % Plt Count 250 (130-400) K/uL BMP 06/06/23 14:56 Sodium 137 Potassium 3.4 L Chloride 105 Carbon Dioxide 24 BUN 17 Creatinine 0.61 Glucose 101 H Calcium 8.9 Liver Function 06/06/23 Range/Units 14:56 Total Bilirubin 0.4 (0.2-1.0) mg/dl AST 37 (13-39) U/L ALT 27 (7-52) U/L Alkaline Phosphatase 85 (34-104) U/L Albumin 4.0 (3.4-5.0) gm/dl Diagnostic Findings Chest X-Ray 06/06/23 14:27 XR chest 1V portable CLINICAL HISTORY: Chest pain, nonspecific TECHNIQUE: Single frontal radiograph of the chest was obtained. Comparison: Comparison is made to chest radiograph 05/31/2023 FINDINGS: No lines and tubes are seen. The cardiomediastinal silhouette is normal. The lungs are clear. No evidence of pleural effusion or pneumothorax. IMPRESSION: No acute chest disease. ACT 112: Negative or not required by law. Electronically signed by: Ammon Snider M.D. 06/06/2023 2:[address] 06/06/23 16:40 CT head/brain wo con CLINICAL HISTORY: left arm numbness Technique: Contiguous axial CT images of the head were acquired from the base of the skull to the vertex without intravenous contrast administration. Images were viewed in brain, subdural and bone windows. Automated dose lowering techniques and/or adjustment according to patient size were utilized for this exam. Comparison: None available at the time of this dictation. Findings: The ventricles, basal cisterns, and cerebral sulci are normal. There is no acute intracranial hemorrhage or evidence of acute territorial infarction. Neither mass effect, shift of the midline structures, nor abnormal extra-axial fluid collections are shown. Imaged portions of the paranasal sinuses and mastoid air cells are clear. The orbits appear normal. There are no acute fractures of the calvaria or scalp swelling. Impression: No acute intracranial hemorrhage, no evidence of acute territorial infarction or other acute intracranial disease process. ACT 112: Negative or not required by law. Electronically signed by: Ammon Snider M.D. 06/06/2023 5:14 PM Code Status & VTE Plan Code Status Full Code in the event of cardiac or respiratory arrest VTE Prophylaxis Plan VTE Prophylaxis will be ordered: Yes Supervising Physician Co-Signing Physician Notes History and exam performed by me 53 year old woman with h/o HTN who presents to the ER with chest pain. Patient had presented to the ER on 05/31/23 with chest pressure, was evaluated and discharged home Reported chest pressure improved However around 1 pm, she developed chest pressure associated with central chest pain radiating to the back, severe. Was nonexertional. Associated with dizziness, shortness of breath and nausea. Denied any LOC Got nitro and aspirin w/EMS without relief Denied smoking, alcohol, illicit drug use Family hx of heart attack in Father in his 70s On exam General: No acute distress and not ill appearing Eyes: PERRL, conjunctivae normal, not pale, anicteric sclerae, EOM intact bilaterally ENMT: External ear and nose normal, oropharynx normal Respiratory: Normal respiratory effort, no respiratory distress, lungs clear to auscultation, no crackles and no wheezes Cardiovascular: RRR S1 S2 Chest (Breasts): No chest wall tenderness Gastrointestinal (Abdomen): Abdomen is not distended, soft, non-tender to palpation, no guarding, no palpable hepatosplenomegaly, normal bowel sounds Musculoskeletal: No pedal edema Neurologic: Alert and oriented x 3, No focal weakness, sensation grossly intact Psychiatric: Alert and oriented x 3, euthymic affect Labs notable for K 3.[address] and CXR reviewed, did not show any acute abnormalities I reviewed EKG which showed TWI in lead III when compared to one from 05/31/23 CTA chest from 05/31/23 did not show any PE Chest pain, atypical BP fluctuating since admission Takes Lisinopril-HCTZ and recently started on atenolol HS (has taken 2 doses) However considering EKG finding, will get Cardiology eval Get TTE Initial trop was normal. Trend Was planned for outpatient stress test from last visit Keep NPO in case of stress test in AM Hold home atenolol incase of stress test in AM Continue lisinopril Start amlodipine 5mg Hold HCTZ for now. Replete hypokalemia Monitor electrolytes Agree with plans as detailed by Vira PEREZ I spent a total of 40 minutes coordinating, documenting and providing care for this patient excluding time spent in performance of separately billed services (2) Hypertension Hypertension type: unspecified Qualified Code(s): I10 - Essential (primary) hypertension
[2023-06-06 18:06] LABS: Magnesium 1.8 mg/dl (1.7-2.4)
[2023-06-06] MEDS ORDERED: amLODIPine BESYLATE 5 MG TAB PO ONE (18:12)
[2023-06-06] MEDS ORDERED: POTASSIUM CHLORIDE CRTAB 20 MEQ TABCR PO ONE (18:15)
[2023-06-06] MEDS: ENOXAPARIN INJ 40 MG/0.4 ML SYR SQ SCH (19:55)
[2023-06-07] MEDS: SODIUM CHLORIDE 0.9% 1,000 ML IV SCH (02:27)
[2023-06-07 02:45] LABS: Hematocrit (blood only) 39.1 % (37.0-47.0); Hemoglobin 13.5 g/dl (12.0-16.0); Mean Corpuscular Hemoglobin 32.3 pg (25.0-34.0); Mean Corpuscular Hgb Conc 34.5 g/dL (32.0-36.0); Mean Corpuscular Volume 93.5 fL (80.0-100.0); Mean Platelet Volume 9.4 fL (9.4-12.4); Platelet Count 244 K/uL (130-400); RDW Coefficient of Variation 12.2 % (11.5-14.5); RDW Standard Deviation 42.4 fL (36.4-46.3); Red Blood Count 4.18 M/uL (4.20-5.40); White Blood Count 5.37 K/ul (4.8-10.8)
[2023-06-07 02:48] LABS: Albumin Globulin Ratio 1.7 (0.9-2); Albumin Level 3.8 gm/dl (3.4-5.0); BUN Creatinine Ratio 18.8 (10-20); Bilirubin,Total 0.4 mg/dl (0.2-1.0); Calcium 8.8 mg/dl (8.6-10.3); Creatinine Clr Calc Pharmacy 132.6 ml/min; Est GFR (African American) 116.8 ml/min; Est GFR (Non-African American) 100.8 ml/min; Globulin 2.3 gm/dl (2.5-4.0); Potassium 3.5 mmol/L (3.5-5.1); Total Protein 6.1 gm/dl (6.0-8.3)
--- NOTE | 2023-06-07 07:58 | Cardiology Consultation ---
Date of Consultation June 07, 2023 Assessment & Plan (1) Chest pain: (2) Shortness of breath: (3) Hypertension: Plan IMPRESSION: 53 year old female with concerns for CP and SOB. Cardiac workup thus far with negative HS trop and EKG without acute ST segment changes. Preliminary read of echo without WMA. LVEF preserved. PLAN: Chest pain/SOB: -Proceed with exercise stress echo to rule out ischemic cause for symptoms. -Will add on Lipid panel to AM blood work. Hypertension: -HTN could be contributing to chest pressure. Case discussed with Dr. Le. I spent a total of 40 minutes on the date of service in preparation, delivery, and documentation of the care provided to the patient excluding any time spent in the performance of separately billed services. ANA Knox Department of Cardiology, [facility] This chart was completed in part utilizing Speech Voice Recognition Software. Grammatical errors, random word insertions, pronoun errors, and incomplete sentences are an occasional consequence of this system due to software limitations, ambient noise, and hardware issues. Any formal questions or concerns about the content, text, or information contained within the body of this dictation should be directly addressed to the provider for clarification. Supervising Physician Co-Signing Physician Notes Supervising Physician Attestation: I have personally performed a history and physical examination on the patient. I agree with the nurse practitioner's findings and plan as documented with the following additions. Subjective: Patient seen prior to, during, and post exercise stress echocardiogram. No ongoing chest discomfort noted. Exam: Cardiovascular: Regular rhythm no murmurs Data: EKG performed this morning at 5:53 AM and interpret independently: Baseline artifact noted, sinus rhythm at 74 bpm, nonspecific repolarization change limited to lead III. QT interval mildly prolonged at 481 ms however compared to previous tracings, this has not been an issue. Assessment and Plan: Chest discomfort Hypertension -Patient exercised for 5 minutes on a [place] protocol. Stress test was negative for inducible ischemia. Resting hypertension noted with exaggerated blood pressure response. -Patient has been treated as an outpatient with lisinopril 20/HCTZ 25 mg daily. HCTZ had been held on presentation due to dizziness and mildly low potassium level. Looking ahead, I think use of a thiazide diuretic is indicated. Recommend supplementing potassium and resuming HCTZ. -With regards to additional antihypertensive treatment, I would favor adding low-dose amlodipine over atenolol. -- Patient to be transferred from the stress lab back to her room. Will advance diet, and administer amlodipine and HCTZ as well as potassium supplementation as previously ordered. Anticipate discharge later today. I spent a total of 20 minutes on the date of service in preparation, delivery, and documentation of the care provided to this patient, excluding any time spent in the performance of separately billed services. Conor Le DO History of Present Illness Reason for Consultation: Chest pain Requesting Physician: Leonie hospitalist Attending Physician: Reza Mar MD History of Present Illness 53-year-old female who presented to [facility] emergency department on 06/06/2023 due to recurrent chest pain/pressure and mild shortness of breath. discomfort radiated to BL upper extremities. During episode felt anxious and lightheaded. + nausea, no vomiting. Patient was initially seen at [facility] emergency department on 05/31/2023 due to similar concerns. Blood pressures were hypertensive. EKG without acute changes. CTA of the chest evidence of dissection or PE. Patient was felt to be dehydrated and was given IV fluids. Blood pressures remained hypertensive and patient declined admission. Followed up with her PCP on 06/04/2023. Patient was started on atenolol 25 mg daily. Exercise stress echo was ordered but not yet completed. EKG this admission showed: Normal sinus rhythm, 78 bpm. T wave inversion in lead III only--somewhat of a poor tracing. Labs: Hypokalemia 3.3>>3.4>>3.5, renal function stable. High-sensitivity troponin negative x 3 Echo: preliminary read with preserved LVEF and no WMA. Upon entrance into the room patient resting in bed. No acute concerns. Currently chest pain free. No obvious shortness of breath. Denies palpitations, dizziness, syncope or near syncope. No orthopnea, PND, or increased lower extremity edema. No fever, chills, cough, hematochezia, melena, or hemoptysis. Tele: SR 70-80s BP with improved control. Social History: Denies tobacco use, social alcohol, no recreational drug use, including medical marijuana Family history: Mother and father had diabetes. Past medical history: Hypertension Palpitations History of DVT, 2020 provoked by IV draws. Not on anticoagulation Chronic bilateral paresthesias Allergies Allergy/AdvReac Type Severity Reaction Status Date / Time No Known Allergies Allergy Unknown Verified 07/15/21 17:14 Home Medications Medication Instructions Recorded Confirmed Type acetaminophen 500 mg tablet 1,000 mg PO Q6H PRN Pain 05/31/23 06/06/23 History (Tylenol Extra Strength) hydroxyzine pamoate 25 mg capsule 25 mg PO TID PRN Anxiety 05/31/23 06/06/23 History lisinopril 20 1 tab PO QAM 05/31/23 06/06/23 History mg-hydrochlorothiazide 25 mg tablet omeprazole magnesium 20 mg 20 mg PO DAILY 05/31/23 06/06/23 History tablet,delayed release (Prilosec OTC) atenolol 25 mg tablet 25 mg PO HS 06/06/23 06/06/23 History loratadine 10 mg tablet (Claritin) 10 mg PO QAM 06/06/23 06/06/23 History Patient History Medical History (Updated 06/07/23 @ 08:50 by ANA Choudhary) H/O gastroesophageal reflux (GERD) Paresthesia Hypertension Family History (Updated 06/06/23 @ 18:03 by ANA Kline) Father Myocardial infarction Other Diabetes Heart disease Hypertension Social History Smoking Status: Never smoker Hx Alcohol Use: Yes Alcohol type: wine Hx Substance Use: No Preferred Language: Sierra Leonean Beliefs That Will Affect Care: None Current Living Situation: Spouse Other Information That Helps Us Care for You: No Feels Safe at Home: Yes Safety Concerns: Feels Safe At This Time Assistive Devices: Glasses Review of Systems Review of Systems: All systems reviewed & are unremarkable except as noted in HPI & below Physical Exam Constitutional: WD/WN, vitals as above Neck: normal visual inspection and trachea midline Respiratory: normal respiratory effort, lungs clear to auscultation no cough Cardiovascular: RRR, no murmur, no edema Heart Sounds: normal S1 and normal S2; no murmur Vessels: no JVD Extremities: + edema (trace nonpitting, lymphedema-like ) Gastrointestinal (Abdomen): Inspection/Auscultation: abdomen normal to inspection and normal bowel sounds; abdomen not distended Percussion/Palpation: abdomen soft; abdomen nontender Skin: no rashes, warm and dry Psychiatric: A+Ox3, euthymic affect Results & Data Vital Signs (Past 12 Hours) Vital Signs Temp Pulse Pulse Resp BP BP Pulse Ox 06/07/23 06:04 74 13 06/07/23 05:00 72 16 06/07/23 04:00 72 23 06/07/23 03:00 73 18 06/07/23 02:00 73 18 06/07/23 01:03 36.9 C 74 14 127/80 98 06/07/23 01:00 127/80 06/07/23 01:00 74 22 06/07/23 00:01 83 18 06/07/23 00:01 116/65 06/07/23 00:00 80 17 06/07/23 00:00 81 06/06/23 23:01 78 21 06/06/23 23:01 123/80 06/06/23 23:00 80 20 06/06/23 22:00 72 17 06/06/23 21:54 06/06/23 21:01 73 17 06/06/23 21:01 133/95 06/06/23 21:00 75 31 H 06/06/23 20:01 148/98 H 06/06/23 20:01 79 22 06/06/23 20:00 91 H 22 O2 Del Method O2 Del Method 06/07/23 06:04 06/07/23 05:00 06/07/23 04:00 06/07/23 03:00 06/07/23 02:00 06/07/23 01:03 Room Air 06/07/23 01:00 06/07/23 01:00 06/07/23 00:01 06/07/23 00:01 06/07/23 00:00 06/07/23 00:00 06/06/23 23:01 06/06/23 23:01 06/06/23 23:00 06/06/23 22:00 06/06/23 21:54 Room Air 06/06/23 21:01 06/06/23 21:01 06/06/23 21:00 06/06/23 20:01 06/06/23 20:01 06/06/23 20:00 Laboratory Results Cardiac Enzymes 06/06/23 06/06/23 06/07/23 Range/Units 14:56 19:48 02:07 AST 37 20 (13-39) U/L Troponin I High Sens 8.8 3.9 D 3.6 (0-14) pg/ml B-Natriuretic Peptide 59 (0-100) pg/ml Coagulation 06/06/23 Range/Units 14:56 B-Natriuretic Peptide 59 (0-100) pg/ml CBC 06/06/23 06/07/23 Range/Units 14:56 02:07 WBC 9.96 5.37 (4.8-10.8) K/ul RBC 4.35 4.18 L (4.20-5.40) M/uL Hgb 14.4 13.5 (12.0-16.0) g/dl Hct 40.4 39.1 (37.0-47.0) % Plt Count 250 244 (130-400) K/uL Neut # (Auto) 8.13 H (1.40-6.50) K/uL Lymph # (Auto) 1.04 L (1.20-3.40) K/uL [place] # (Auto) 0.61 H (0.11-0.59) K/uL Eos # (Auto) 0.10 (0.00-0.50) K/uL Baso # (Auto) 0.04 (0.00-0.20) K/uL Comprehensive Metabolic Panel 06/06/23 06/07/23 Range/Units 14:56 02:07 Sodium 137 141 (136-145) mmol/L Potassium 3.4 L 3.5 (3.5-5.1) mmol/L Chloride 105 107 (98-107) mmol/L Carbon Dioxide 24 28 (21-32) mmol/L BUN 17 13 (6-23) mg/dl Creatinine 0.61 0.69 (0.6-1.2) mg/dl Glucose 101 H 89 (70-99(Fasting)) mg/dl Calcium 8.9 8.8 (8.6-10.3) mg/dl AST 37 20 (13-39) U/L ALT 27 23 (7-52) U/L Alkaline Phosphatase 85 75 (34-104) U/L Total Protein 6.5 6.1 (6.0-8.3) gm/dl Albumin 4.0 3.8 (3.4-5.0) gm/dl Intake and Output 06/06/23 06/07/23 06/07/23 22:59 06:59 14:59 Intake Total 1000 / 1000 Output Total 200 / 200 Balance 800 / 800 Intake: IV 1000 / 1000 Sodium Chloride 0.9% 1,000 ml @ 1000 / 1000 125 mls/hr IV .Q8H [facility] Rx#: [id number] Output: Urine 200 / 200 Other: # Unmeasured Voids 1 Weight 116.4 kg 116.6 kg Weight Measurement Method Standing Scale Built in [facility] (1) Chest pain Chest pain type: other chest pain Qualified Code(s): R07.89 - Other chest pain (3) Hypertension Hypertension type: unspecified Qualified Code(s): I10 - Essential (primary) hypertension
[2023-06-07] MEDS: ENOXAPARIN INJ 40 MG/0.4 ML SYR SQ SCH (08:06)
[2023-06-07] MEDS ORDERED: LORATADINE 10 MG TAB PO SCH (09:00)
[2023-06-07] MEDS ORDERED: lisinopril 20 MG TAB PO SCH (09:00)
[2023-06-07] MEDS ORDERED: PANTOprazole 40 MG TAB PO SCH (09:00)
[2023-06-07 09:29] LABS: Chol HDL Ratio 3.7 (0-5)
--- NOTE | 2023-06-07 09:33 | Hospitalist Progress Note ---
Date of Service June 07, 2023 Assessment & Plan (1) Chest pain: (2) Hypertension: (3) History of deep vein thrombosis: (4) Hypokalemia: (5) Paresthesia: Plan Ms. Kaur is a 53 year old female that presented to the ED with chest pain. She was sitting on her couch watching tv; she doesn't report SOB, but is aware of taking deep breaths. She reports feeling anxious. She stated that her thought she was going to pass out. She felt like she was naus eated but did not vomit. On 05/31 she presented to the ED with similar symptoms, including chest pressure. She had a work up including negative troponin and was released from the ED. She reports that Atenolol was recently added to her medication list. She has a PMH that includes HTN, GERD, H/O LUE DVT ( 2020 provoked by IV draws, not on any anticoagulation), bilateral paraesthesia. Denies AMI or CVA history. Father had an [place] at 70 years old. Mother and father had diabetes. Denies tobacco use, social alcohol, no recreational drug use, including medical marijuana. She has had an appendectomy and a tubal ligation. In the ED, no leukocytosis, BNP 59, K+ mildly low at 3.4, Troponin 8.8. ECG changes indicate T wave inversion on Lead III. No T wave inversion on ECG on 05/31. She denies [place], fever, chills, cough, diarrhea, constipation, hematochezia, dysuria, recent falls or trauma. Will admit for complete cardiac work up, including ECHO, Cardiology consult due to t-wave inversion, NPO after MN, Hold Atenolol and HCTZ pending Cards eval. Start Amlodipine and replace K+. Chest pain: Acute 324 aspirin plus nitro x 2 administered without symptom improvement ECG changes from 05/31 now with T wave inversion inferior lead III Initial trop 8.8; do not suspect ACS, but with s/s will trend x2 Was scheduled for stress test in a few weeks; will obtain echo while inpatient Will keep n.p.o. after midnight pending cards evaluation Lovenox SQ Cardiology consultation placed Hypokalemia: Acute Serum potassium 3.4 Replace with a total of 40 p.o. and recheck in a.m. No ectopy on heart monitor History of DVT: Chronic Suspected related to multiple IV in left upper extremity Was on anticoagulation x 3 months no longer taking any anticoagulants HTN: Chronic Takes lisinopril/HCTZ; hold HCTZ pending cards evaluation Continue lisinopril Hold atenolol. Recently started, first dose yesterday hold for now pending cards evaluation Start amlodipine 5 mg tonight GERD: Chronic Takes omeprazole; continue Disposition: PCP: Dr. Conroy Code Status: Full Code VTE Prophyalxis: Lovenox SQ Admission and Anticipated Discharge Date Admission Date: June 06, 2023 Subjective Pt seen in follow up of chest pain cardiology consulted - plan for stress test Results & Data Results & Data Vital Signs (Past 12 Hours) Vital Signs Temp Pulse Pulse Resp BP BP Pulse Ox 06/07/23 08:50 36.8 C 06/07/23 08:02 79 20 06/07/23 08:02 147/97 H 96 06/07/23 08:00 75 29 H 06/07/23 07:00 74 19 06/07/23 06:04 74 13 06/07/23 05:00 72 16 06/07/23 04:00 72 23 06/07/23 03:00 73 18 06/07/23 02:00 73 18 06/07/23 01:03 36.9 C 74 14 127/80 98 06/07/23 01:00 127/80 06/07/23 01:00 74 22 06/07/23 00:01 83 18 06/07/23 00:01 116/65 06/07/23 00:00 80 17 06/07/23 00:00 81 06/06/23 23:01 78 21 06/06/23 23:01 123/80 06/06/23 23:00 80 20 06/06/23 22:00 72 17 06/06/23 21:54 O2 Del Method O2 Del Method 06/07/23 08:50 06/07/23 08:02 06/07/23 08:02 Room Air 06/07/23 08:00 06/07/23 07:00 06/07/23 06:04 06/07/23 05:00 06/07/23 04:00 06/07/23 03:00 06/07/23 02:00 06/07/23 01:03 Room Air 06/07/23 01:00 06/07/23 01:00 06/07/23 00:01 06/07/23 00:01 06/07/23 00:00 06/07/23 00:00 06/06/23 23:01 06/06/23 23:01 06/06/23 23:00 06/06/23 22:00 06/06/23 21:54 Room Air Laboratory Results 06/07/23 06/06/23 06/06/23 Range/Units 02:07 19:48 14:56 WBC 5.37 9.96 (4.8-10.8) K/ul RBC 4.18 L 4.35 (4.20-5.40) M/uL Hgb 13.5 14.4 (12.0-16.0) g/dl Hct 39.1 40.4 (37.0-47.0) % MCV 93.5 92.9 (80.0-100.0) fL MCH 32.3 33.1 (25.0-34.0) pg MCHC 34.5 35.6 (32.0-36.0) g/dL RDW Std Deviation 42.4 41.1 (36.4-46.3) fL RDW Coeff of Lu 12.2 12.0 (11.5-14.5) % Plt Count 244 250 (130-400) K/uL MPV 9.4 9.4 (9.4-12.4) fL Immature Gran % (Auto) 0.4 % Neut % (Auto) 81.7 % Lymph % (Auto) 10.4 % [place] % (Auto) 6.1 % Eos % (Auto) 1.0 % Baso % (Auto) 0.4 % Neut # (Auto) 8.13 H (1.40-6.50) K/uL Lymph # (Auto) 1.04 L (1.20-3.40) K/uL [place] # (Auto) 0.61 H (0.11-0.59) K/uL Eos # (Auto) 0.10 (0.00-0.50) K/uL Baso # (Auto) 0.04 (0.00-0.20) K/uL Immature Gran # (Auto) 0.04 (0.01-0.20) K/uL Sodium 141 137 (136-145) mmol/L Potassium 3.5 3.4 L (3.5-5.1) mmol/L Chloride 107 105 (98-107) mmol/L Carbon Dioxide 28 24 (21-32) mmol/L Anion Gap 6 8 (3-11) BUN 13 17 (6-23) mg/dl Creatinine 0.69 0.61 (0.6-1.2) mg/dl Est Cr Clr Drug Dosing 132.6 147.4 ml/min Est GFR ( Amer) 116.8 121.7 ml/min Est GFR (Non-Af Amer) 100.8 105.0 ml/min BUN/Creatinine Ratio 18.8 27.9 H (10-20) Glucose 89 101 H (70-99(Fasting)) mg/dl Calcium 8.8 8.9 (8.6-10.3) mg/dl Magnesium 1.8 (1.7-2.4) mg/dl Total Bilirubin 0.4 0.4 (0.2-1.0) mg/dl AST 20 37 (13-39) U/L ALT 23 27 (7-52) U/L Alkaline Phosphatase 75 85 (34-104) U/L Troponin I High Sens 3.6 3.9 D 8.8 (0-14) pg/ml B-Natriuretic Peptide 59 (0-100) pg/ml Total Protein 6.1 6.5 (6.0-8.3) gm/dl Albumin 3.8 4.0 (3.4-5.0) gm/dl Globulin 2.3 L 2.5 (2.5-4.0) gm/dl Albumin/Globulin Ratio 1.7 1.6 (0.9-2) Triglycerides 178 H (0-150) mg/dl Cholesterol 179 (0-200) mg/dl LDL Cholesterol Direct Pending LDL Cholesterol, Calc 94 mg/dl VLDL Cholesterol, Calc 36 H (0-30) mg/dl HDL Cholesterol 49 mg/dl Cholesterol/HDL Ratio 3.7 (0-5) Lipase 25 (11-82) U/L Medications Administered Current Inpatient Medications Acetaminophen (Acetaminophen 325 Mg Tab) 650 mg PO Q4H PRN PRN Reason: Pain or Fever Stop: 07/06/23 17:40 Al Hydrox/Mg Hydrox/Simethicone (Aluminum/Magnesium Susp 30 Ml Udc) 15 ml PO Q4H PRN PRN Reason: Dyspepsia Stop: 07/06/23 17:40 Enoxaparin Sodium (Enoxaparin Inj 40 Mg/0.4 Ml Syr) 40 mg SQ [facility] Stop: 07/06/23 18:59 Last Admin: 06/07/23 08:06 Dose: 40 mg Sodium Chloride (Nss) 1,000 mls @ 125 mls/hr IV .Q8H [facility] Stop: 07/06/23 16:29 Last Admin: 06/07/23 02:27 Dose: 125 mls/hr Lisinopril (Lisinopril 20 Mg Tab) 20 mg PO [facility] Stop: 07/07/23 08:59 Last Admin: 06/07/23 08:06 Dose: 20 mg Loratadine (Loratadine 10 Mg Tab) 10 mg PO [facility] Stop: 07/07/23 08:59 Last Admin: 06/07/23 08:06 Dose: 10 mg Magnesium Hydroxide (Magnesium Hydroxide Susp 30 Ml Udc) 30 ml PO Q12H PRN PRN Reason: Constipation Stop: 07/06/23 17:40 Ondansetron HCl (Ondansetron Inj 2 Mg/Ml 2 Ml Vial) 4 mg IV Q6H PRN PRN Reason: Nausea Stop: 07/06/23 17:40 Pantoprazole Sodium (Pantoprazole 40 Mg Tab) 40 mg PO DAILY [facility] Stop: 07/07/23 08:59 Last Admin: 06/07/23 08:06 Dose: 40 mg Polyethylene Glycol (Polyethylene (Miralax) 17 Gm Pack) 17 gm PO DAILY PRN PRN Reason: Constipation Stop: 07/06/23 17:40 (1) Chest pain Chest pain type: other chest pain Qualified Code(s): R07.89 - Other chest pain (2) Hypertension Hypertension type: unspecified Qualified Code(s): I10 - Essential (primary) hypertension
[2023-06-07] MEDS ORDERED: POTASSIUM CHLORIDE CRTAB 20 MEQ TABCR PO STA (09:34)
[2023-06-07] MEDS ORDERED: hydroCHLOROthiazide 25 MG TAB PO ONE (10:45)
[2023-06-07] MEDS ORDERED: amLODIPine BESYLATE 5 MG TAB PO ONE (10:45)
--- NOTE | 2023-06-07 11:34 | Discharge Summary ---
Date of Service June 07, 2023 Admission HPI Per Admitting Provider Ms. Kaur is a 53 year old female that presented to the ED with chest pain. She was sitting on her couch watching tv; she doesn't report SOB, but is aware of taking deep breaths. She reports feeling anxious. She stated that her thought she was going to pass out. She felt like she was nauseated but did not vomit. On 05/31 she presented to the ED with similar symptoms, including chest pressure. She had a work up including negative troponin and was released from the ED. She reports that Atenolol was recently added to her medication list. She has a PMH that includes HTN, GERD, H/O LUE DVT ( 2020 provoked by IV draws, not on any anticoagulation), bilateral paraesthesia. Denies AMI or CVA history. Father had an [place] at 70 years old. Mother and father had diabetes. Denies tobacco use, social alcohol, no recreational drug use, including medical marijuana. She has had an appendectomy and a tubal ligation. In the ED, no leukocytosis, BNP 59, K+ mildly low at 3.4, Troponin 8.8. ECG radha nges indicate T wave inversion on Lead III. No T wave inversion on ECG on 05/31. She denies [place], fever, chills, cough, diarrhea, constipation, hematochezia, dysuria, recent falls or trauma. Will admit for complete cardiac work up, including ECHO, Cardiology consult due to t-wave inversion, NPO after MN, Hold Atenolol and HCTZ pending Cards eval. Start Amlodipine and replace K+. Admission Exam Per Admitting Provider General: No acute distress and not ill appearing Eyes: PERRL, conjunctivae normal, not pale, anicteric sclerae, EOM intact bilaterally ENMT: External ear and nose normal, oropharynx normal Respiratory: Normal respiratory effort, no respiratory distress, lungs clear to auscultation, no crackles and no wheezes Cardiovascular: RRR S1 S2 Chest (Breasts): No chest wall tenderness Gastrointestinal (Abdomen): Abdomen is not distended, soft, non-tender to palpation, no guarding, no palpable hepatosplenomegaly, normal bowel sounds Musculoskeletal: No pedal edema Neurologic: Alert and oriented x 3, No focal weakness, sensation grossly intact Psychiatric: Alert and oriented x 3, euthymic affect Principal Diagnosis Chest pain, Hypertension Discharge Exam General: No acute distress and not ill appearing Eyes: PERRL, conjunctivae normal, not pale, anicteric sclerae, EOM intact bilaterally ENMT: External ear and nose normal, oropharynx normal Respiratory: Normal respiratory effort, no respiratory distress, lungs clear to auscultation, no crackles and no wheezes Cardiovascular: RRR S1 S2 Chest (Breasts): No chest wall tenderness Gastrointestinal (Abdomen): Abdomen is not distended, soft, non-tender to palpation, no guarding, normal bowel sounds Musculoskeletal: No pedal edema Neurologic: Alert and oriented x 3, speech fluent, no facial asymmetry, answers appropriately, moves extremities Discharge Data Allergies Allergy/AdvReac Type Severity Reaction Status Date / Time No Known Allergies Allergy Unknown Verified 07/15/21 17:14 Consultations 06/06/23 17:35 ED Decision to Admit Stat 06/07/23 08:00 Consult Cardiology Routine Ordered Studies 06/06/23 16:40 CT head/brain wo con Stat Findings: The ventricles, basal cisterns, and cerebral sulci are normal. There is no acute intracranial hemorrhage or evidence of acute territorial infarction. Neither mass effect, shift of the midline structures, nor abnormal extra-axial fluid col lections are shown. Imaged portions of the paranasal sinuses and mastoid air cells are clear. The orbits appear normal. There are no acute fractures of the calvaria or scalp swelling. Impression: No acute intracranial hemorrhage, no evidence of acute territorial infarction or other acute intracranial disease process. Hospital Course (1) Chest pain: (2) Hypertension: (3) History of deep vein thrombosis: (4) Hypokalemia: (5) Paresthesia: Plan Ms. Kaur is a 53 year old female that presented to the ED with chest pain. She was sitting on her couch watching tv; she doesn't report SOB, but is aware of taking deep breaths. She reports feeling anxious. She stated that her thought she was going to pass out. She felt like she was nauseated but did not vomit. On 05/31 she presented to the ED with similar symptoms, including chest pressure. She had a work up including negative troponin and was released from the ED. She reports that Atenolol was recently added to her medication list. She has a PMH that includes HTN, GERD, H/O LUE DVT ( 2020 provoked by IV draws, not on any anticoagulation), bilateral paraesthesia. Denies AMI or CVA history. Father had an AK at 70 years old. Mother and father had diabetes. Denies tobacco use, social alcohol, no recreational drug use, including medical marijuana. She has had an appendectomy and a tubal ligation. In the ED, no leukocytosis, BNP 59, K+ mildly low at 3.4, Troponin 8.8. ECG changes indicate T wave inversion on Lead III. No T wave inversion on ECG on 05/31. She denies [place], fever, chills, cough, diarrhea, constipation, hematochezia, dysuria, recent falls or trauma. Will admit for complete cardiac work up, including ECHO, Cardiology consult due to t-wave inversion, NPO after MN, Hold Atenolol and HCTZ pending Cards eval. Start Amlodipine and replace K+. Chest pain: 324 aspirin plus nitro x 2 administered without symptom improvement ECG changes from 05/31 now with T wave inversion inferior lead III Initial trop 8.8; do not suspect ACS, but with s/s will trend x2 Was scheduled for stress test in a few weeks Echo obtained while inpatient - LV wall motion is normal. LVEF 55 to 60%. Grade 1 diastolic dysfunction. There is no significant valvular disease. Echo stress -s tress echo is negative for ischemia. Resting hypertension was present with an exaggerated blood pressure response to exercise. Cardiology consulted - cont. lisinopril, HCTZ, add amlodipine 2.5 mg. Stop atenolol. Hypokalemia: replace and monitor History of DVT: Suspected related to multiple IV in left upper extremity Was on anticoagulation x 3 months no longer taking any anticoagulants HTN: Takes lisinopril/HCTZ Recently started atenolol. Now stopped, as above Starting amlodipine as above. GERD: Chronic Takes omeprazole; continue Total Time Total Time Spent Total Time Spent (In Minutes): 40 Discharge Plan Discharge Items Patient Disposition: Home - Home Health Services Reason For Visit: CHEST PAIN Discharge Diagnosis: Chest pain, Hypertension Activity: Per Instructions section Non-emergency contact: Primary Care Provider Call non-emergency contact if: you have any medication questions Follow-up/Referrals: Bear Conroy MD [Primary Care Provider] - Diet: Heart Healthy Addtl Attending Provider Instructions: Follow up with your primary care doctor within 1 week. Stop taking atenolol. Continue taking HCTZ/lisinopril. In addition, take amlodipine 2.5 mg daily. If you can, monitor your blood pressure at home. Pending Studies at Discharge: No Stand-Alone Forms: My [facility] [employer], Smoking Cessation Medications and DC Order Prescriptions: New amlodipine [Norvasc] 5 mg Tablet 2.5 mg PO QAM Qty: 30 0RF potassium chloride 10 mEq capsule, extended release 10 meq PO DAILY Qty: 30 0RF Continued acetaminophen [Tylenol Extra Strength] 500 mg Tablet 1,000 mg PO Q6H PRN (Reason: Pain) lisinopril-hydrochlorothiazide 20-25 mg tablet 1 tab PO QAM hydroxyzine pamoate 25 mg capsule 25 mg PO TID PRN (Reason: Anxiety) omeprazole magnesium [Prilosec OTC] 20 mg Tablet,Delayed Release (Dr/Ec) 20 mg PO DAILY loratadine [Claritin] 10 mg Tablet 10 mg PO QAM Discontinued atenolol 25 mg tablet 25 mg PO HS Discharge Orders: Discharge Order (Routine); Ordered 06/07/23 Ordered By: Reza Mar Admission Data Admit Date/Time: 06/06/23 17:41 Attending Provider: Reza Mar Admit Provider: Christy De Los Santos I. Primary Care Provider: Bear Conroy Other Providers: Christy De Los Santos I.; Ella Muniz
--- NOTE | 2023-06-07 14:12 | Electrocardiogram Report ---
Test Reason : Blood Pressure : / mmHG Vent. Rate : 078 BPM Atrial Rate : 078 BPM P-R Int : 136 ms QRS Dur : 084 ms QT Int : 404 ms P-R-T Axes : 008 027 007 degrees QTc Int : 460 ms Normal sinus rhythm Normal ECG When compared with ECG of 31-MAY-2023 17:55, T wave inversion now evident in Inferior leads Confirmed by Andrae Proctor ([id number]) on 06/07/2023 2:11:43 PM Referred By: REFERRED SELF Confirmed By:Terrance Proctor
--- NOTE | 2023-06-07 16:30 | Electrocardiogram Report ---
Test Reason : Blood Pressure : / mmHG Vent. Rate : 074 BPM Atrial Rate : 074 BPM P-R Int : 150 ms QRS Dur : 090 ms QT Int : 434 ms P-R-T Axes : 045 045 034 degrees QTc Int : 481 ms Poor data quality, interpretation may be adversely affected Normal sinus rhythm Abnormal ECG When compared with ECG of 06-JUN-2023 14:52, (unconfirmed) No significant change was found Confirmed by Andrae Proctor ([id number] on 06/07/2023 4:30:22 PM Referred By: REFERRED SELF Confirmed By:Terrance Proctor
[2023-06-08] MEDS ORDERED: amLODIPine BESYLATE 5 MG TAB PO SCH (09:00)
[2023-06-08] MEDS ORDERED: hydroCHLOROthiazide 25 MG TAB PO SCH (09:00)
== END 2023-06-07 14:07 | disposition home or self-care (01) | DRG 313 ==
LOC: ED 14:23 → INTOOBSV 17:41 → SUATTDRO 17:41 → 1E 17:41